=== PATIENT | male | born 1960 | race Caucasian/White ===

== ENCOUNTER 2022-06-18 08:31 | Day surgery (SDC) | payer OTHER ==
[~2022-06-18] VITALS: Ht 172.7 cm; Wt 90.3 kg
[2022-06-18 10:42] VITALS: BP 130/81
== END 2022-06-18 12:17 | disposition home or self-care (01) | DRG 951 ==
LOC: ENDO 08:31 → ORM 09:00 → ENDO 12:17
PROVIDERS: ATTEND Surgery
PROC: 0DJD8ZZ Inspection of Lower Intestinal Tract, Via Natural or Artificial Opening Endoscopic (ICD-10-PCS; principal; 2022-06-18)
DX: Z12.11 Encounter for screening for malignant neoplasm of colon (principal); K64.8 Other hemorrhoids; Z86.010 Personal history of colon polyps